=== PATIENT | male | born 1980 | race Caucasian/White ===

== ENCOUNTER 2020-11-04 13:36 | Outpatient (CLI) | payer OTHER, SELFPAY ==
--- NOTE | ~2020-11-04 | XR_ITS ---
EXAMINATION: [id number] DATE: 11/04/2020 14:04 INDICATION: Neck pain. TECHNIQUE: 3 views of cervical spine on 5 radiographs were obtained. COMPARISON: None. FINDINGS: There is 3 degrees levocurvature of cervical spine. Vertebral body heights and intervertebr al disc heights are normal. The facet joints and uncovertebral joints are unremarkable. No central ca nal stenosis or prevertebral soft tissue swelling. IMPRESSION: 1. No etiology for the patient's symptoms. Reviewed, dictated and finalized at location [employer]
== END 2020-11-04 13:37 | disposition home or self-care (01) ==
LOC: ANHIMG 13:43
PROVIDERS: PCP Family Medicine; Visit Provider Nurse Practitioner Family
DX: M54.2 Cervicalgia (principal)
CPT/HCPCS: 72040

== ENCOUNTER 2021-01-18 15:20 | Emergency (ER) | payer OTHER, SELFPAY ==
[2021-01-18 15:20] VITALS: BP 127/86; PULSE 85; RESP 15; TEMP 36.7; O2SAT 96
--- NOTE | 2021-01-18 15:40 | ED.GENADULT ---
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 Patient had an allergy shot today and states he been doing well he actually left the office and began to have hives return the office he was having feelings of his throat closing and shortness of breath as well as diffuse hives patient was given Zyrtec and Pepcid at the office as well as ultimately 2 doses of epinephrine at this time patient states he is feeling better hives have resolved he denies any current shortness of breath or throat swelling denies any chest pain or any other symptoms at this time Related Data Allergies Allergy/AdvReac Type Severity Reaction Status Date / Time dog dander Allergy Hives Verified 01/18/21 15:31 Fish Containing Products Allergy Dyspnea / Verified 01/18/21 15:31 SOB tree and shrub pollen Allergy Anaphylaxis Verified 01/18/21 15:30 Review of Systems Review of Systems: Narrative: Gen.: Denies fevers or chills Eyes: Denies eye pain or visual change ENT: Reports feeling of throat swelling Respiratory: Reports shortness of breath CV: Denies chest pain or palpitations GI: Denies abdominal pain nausea, emesis or diarrhea Musculoskeletal: Denies back pain or muscle pain Neuro: Denies numbness, tingling, weakness or focal weakness Skin: Denies rash Except as documented, all other systems reviewed and negative PMFSH Past Medical History Medical History (Updated 01/18/21 @ 19:07 by Serge Mccauley DO) Patient denies significant medical history Social History Social History (Updated 01/18/21 @ 15:41 by Serge Mccauley DO) Smoking status: Never smoker Exam Narrative: Exam Narrative: APPEARANCE: No acute distress, nontoxic, resting in bed EYES: EOMI HEENT: Normocephalic, atraumatic, OMM no swelling of the lips or tongue airway patent RESPIRATORY: No respiratory distress Clear to auscultation bilaterally with no rhonchi wheezing or rales. CARDIOVASCULAR: Regular rate and rhythm without murmurs rubs or gallops. ABDOMINAL: Soft, nontender, nondistended, no rebound or guarding MUSCULOSKELETAl: Moves all extremities. No clubbing, cyanosis or edema. NEURO: Awake and alert. Following commands, speech normal, no focal deficits SKIN:: Warm, dry. No rashes lesions or abrasions PSYCHIATRIC: Normal affect/mood, Course Course Emergency Course: Patient remained in the emergency department for approximately 4 hours had no further allergic reaction Discussed with patient results of workup and diagnosis. Discussed need for follow-up with primary care, proper use of medication, and reasons to return to the emergency department. Patient understands and agrees to current treatment plan Vital Signs Vital signs: Vital Signs Temperature 98.0 F 01/18/21 15:20 Pulse Rate 85 01/18/21 15:20 Respiratory Rate 15 01/18/21 15:20 Blood Pressure 127/86 01/18/21 15:20 Pulse Oximetry 96 01/18/21 15:20 Temperature 98.0 F 01/18/21 15:20 Pulse Rate 79 01/18/21 18:01 Respiratory Rate 15 01/18/21 18:01 Blood Pressure 124/81 01/18/21 18:01 Pulse Oximetry 97 01/18/21 18:01 Medical Decision Making Vital Signs Vital Signs: Vital Signs Temperature 98.0 F 01/18/21 15:20 Pulse Rate 85 01/18/21 15:20 Respiratory Rate 15 01/18/21 15:20 Blood Pressure 127/86 01/18/21 15:20 Pulse Oximetry 96 01/18/21 15:20 Temperature 98.0 F 01/18/21 15:20 Pulse Rate 79 01/18/21 18:01 Respiratory Rate 15 01/18/21 18:01 Blood Pressure 124/81 01/18/21 18:01 Pulse Oximetry 97 01/18/21 18:01 Discharge Plan Discharge Clinical Impression: Allergic reaction Patient Disposition: Home, Self-Care Condition: Stable Instructions: Antibiotic Form, General Aller
[2021-01-18 15:54] VITALS: BP 123/88; PULSE 74; RESP 12; O2SAT 95
[2021-01-18] MEDS: diphenhydrAMINE HCl INJ 50 MG/ML VIAL 25 MG IV PUSH (15:54)
[2021-01-18] MEDS: methylPREDNISolone SOD SUCC 125 MG VIAL IV PUSH (15:54)
[2021-01-18 17:00] VITALS: BP 141/94; PULSE 78; RESP 14; O2SAT 97
[2021-01-18 18:01] VITALS: BP 124/81; PULSE 79; RESP 15; O2SAT 97
[2021-01-18 19:20] VITALS: BP 112/71; PULSE 74; RESP 12; O2SAT 98
== END 2021-01-18 19:20 | disposition home or self-care (01) ==
PROVIDERS: Emergency Provider Emergency Medicine; PCP Family Medicine
DX: T78.40XA Allergy, unspecified, initial encounter (principal); L50.9 Urticaria, unspecified; R22.0 Localized swelling, mass and lump, head; R06.02 Shortness of breath
CPT/HCPCS: 96374; 96375; 99284; J1200; J2930

== ENCOUNTER 2021-03-28 09:15 | Emergency (ER) | payer OTHER, SELFPAY ==
[2021-03-28 09:26] VITALS: BP 131/77; PULSE 81; RESP 16; TEMP 36.7; O2SAT 99
[2021-03-28 09:28] VITALS: BP 131/77; PULSE 81; RESP 16; TEMP 36.7; O2SAT 99
--- NOTE | 2021-03-28 09:55 | ED.GENADULT ---
HPI - General Adult General Chief complaint: Extremity Problem,Nontraumatic Stated complaint: RIGHT ARM PAIN Time Seen by Provider: 03/28/21 09:43 Source: patient and RN notes reviewed Mode of arrival: ambulatory Limitations: no limitations History of Present Illness HPI narrative: Patient presents today complaining of pain, swelling to the right hand, wrist, and forearm that started 2 days ago and has been worsening since onset. Redness began to the hand and wrist today. Patient also reports some tingling to the hand. Denies injury or trauma. Currently rates his pain 9/10 and has been taking Tylenol, ibuprofen, and tramadol without relief. MD complaint: Right arm and hand pain Related Data Home Medications Medication Instructions Recorded Confirmed cetirizine 10 mg tablet 10 mg PO DAILY 06/13/20 03/28/21 montelukast 10 mg tablet 10 mg PO DAILY 06/13/20 01/28/21 Allergies Allergy/AdvReac Type Severity Reaction Status Date / Time dog dander Allergy Hives Verified 03/28/21 09:26 Fish Containing Products Allergy Dyspnea / Verified 03/28/21 09:26 SOB tree and shrub pollen Allergy Anaphylaxis Verified 03/28/21 09:26 Review of Systems Review of Systems: Narrative: CONSTITUTIONAL: Denies body aches, fever, chills, or sweats. EYES: Denies visual changes, redness, or discharge. ENT: Denies rhinorrhea, congestion, sore throat, or otalgia. CARDIOVASCULAR: Denies chest pain, palpitations, or edema. RESPIRATORY: Denies cough or dyspnea. GASTROINTESTINAL: Denies abdominal pain, nausea, vomiting, or diarrhea. GENITOURINARY: Denies dysuria or hematuria. SKIN: Denies rash, itching, or wounds. MUSCULOSKELETAL: Denies back pain, or myalgia. + Right arm and hand pain and swelling NEUROLOGIC: Denies headache, numbness, tingling, or weakness. PSYCH: Denies depression or anxiety. [facility] Past Medical History Medical History Morbid obesity Patient denies significant medical history Family History Family History Father Diabetes mellitus Mother COPD (chronic obstructive pulmonary disease) Sibling No problems noted. 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 Please see nursing chart for further information. There is no relevant family history pertinent to the presenting complaint Exam Narrative: Exam Narrative: GENERAL: Well-appearing, well-nourished, and in no acute distress. HEAD: Normocephalic, atraumatic. EYES: EOMI. No redness or drainage. Conjunctivae normal. ENT: Mucous membranes pink and moist. NECK: Normal AROM. CHEST: No respiratory distress. EXTREMITIES: Right arm: 1-2+ edema to the right hand, wrist, and extending up to the mid forearm. Tenderness to the same areas. Erythema to the thenar eminence and extending to the distal radius. Distal sensation intact. Capillary refill normal. Radial pulse normal. Decreased range of motion to the wrist and all fingers due to swelling and pain. SKIN: Warm, dry, no rash. Capillary refill normal. Normal skin turgor. NEURO: No focal deficits. Alert and oriented x3. Gait steady. PSYCH: Normal affect. No signs of depression or anxiety. Course Vital Signs Vital signs: Vital Signs Temperature 98.0 F 03/28/21 09:26 Pulse Rate 81 03/28/21 09:26 Respiratory Rate 16 03/28/21 09:26 Blood Pressure 131/77 03/28/21 09:26 Pulse Oximetry 99
== END 2021-03-28 10:05 | disposition home or self-care (01) ==
PROVIDERS: Emergency Provider Nurse Practitioner; PCP Family Medicine
DX: M10.9 Gout, unspecified (principal); Z87.891 Personal history of nicotine dependence; E66.01 Morbid (severe) obesity due to excess calories; Z68.39 Body mass index [BMI] 39.0-39.9, adult
CPT/HCPCS: 99213; G0463